=== PATIENT | male | born 1980 ===

== ENCOUNTER 2017-06-08 10:52 | Emergency (ER) | payer SELFPAY ==
[2017-06-08 10:55] VITALS: BP 139/94; PULSE 96; RESP 16; TEMP 97.8; O2SAT 98
[2017-06-08 11:05] VITALS: BMI 24.3
--- NOTE | 2017-06-08 11:08 | ED PDOC ---
HPI: Psych/Substance Abuse Time Seen by Provider: 06/08/17 10:57 Chief Complaint (Provider): ETOH History Per: Patient, EMS Additional Complaint(s): [place] presents with 36 yo male, asleep, seemingly in NAD, (+) AOB, for presumed ETOH intoxication. Pt found asleep on the floor with a bunch of other people who were drinking. Pt has no signs and symptoms of trauma. Pt arousable to tactile stimuli only. Past Medical History Reviewed: Unable To Obtain Vital Signs: Last Vital Signs Temp 97.8 F 06/08/17 10:54 Pulse 96 H 06/08/17 10:54 Resp 16 06/08/17 10:54 BP 139/94 H 06/08/17 10:54 Pulse Ox 98 06/08/17 10:54 - Family History Family History: States: Unknown Family Hx - Allergies Allergies/Adverse Reactions: Allergies Allergy/AdvReac Type Severity Reaction Status Date / Time No Known Allergies Allergy Verified 06/08/17 11:07 Review of Systems Review Of Systems: ROS cannot be obtained secondary to pt's inabilty to answer questions. Physical Exam - Reviewed Nursing Documentation Reviewed: Yes Vital Signs Reviewed: Yes - Physical Exam Appears: Positive for: Non-toxic, No Acute Distress Head Exam: Positive for: ATRAUMATIC, NORMAL INSPECTION, NORMOCEPHALIC Skin: Positive for: Normal Color, Warm, DRY Eye Exam: Positive for: EOMI, PERRL ENT: Positive for: Normal ENT Inspection Neck: Positive for: Normal, Painless ROM Cardiovascular/Chest: Positive for: Regular Rate, Rhythm Respiratory: Positive for: CNT, Normal Breath Sounds Gastrointestinal/Abdominal: Positive for: Bowel Sounds, Soft Back: Positive for: Normal Inspection - Laboratory Results Result Diagrams: 06/08/17 11:37 06/08/17 11:37 - ECG O2 Sat by Pulse Oximetry: 98 Medical Decision Making Medical Decision Making: Pt placed on cardiac cath technologist. IV access established and diagnostics ordered. Pt monitored in ED, doing well. Vitals remain stable on cardiac cath technologist. ETOH 640 Pt monitored in ED, asleep. responsive to tactile stimuli 1800- Pt awake and alert, asking for chicken and rice to eat. given food tray which he tolerated without difficulty. asleep on re-eval. Case endorsed to CELINA Miramontes at 1999 pending clinical sobriety Disposition - Clinical Impression Clinical Impression: Alcohol abuse - Patient ED Disposition Is Patient to be Admitted: Transfer of Care - Disposition Disposition: Transfer of Care Disposition Time: 19:20 Condition: STABLE
[2017-06-08 11:46] LABS: BASO # 0.1 K/uL (0.0-0.2); BASO % 1.4 % (0.0-2.0); HEMOGLOBIN 15.3 g/dL (12.0-18.0); LYMPH # 2.1 K/uL (1.0-4.3); MEAN CELL VOLUME 97.1 fl (80.0-94.0); MEAN CORPUSCULAR HEMOGLOBIN 32.6 pg (27.0-31.0); MEAN CORPUSCULAR HGB CONC 33.5 g/dL (33.0-37.0); MEAN PLATELET VOLUME 8.6 fl (7.2-11.7); MONO # 0.3 K/uL (0.0-0.8); MONO % 4.3 % (0.0-10.0); NEUT # 3.5 K/uL (1.8-7.0); NEUT % 59.3 % (50.0-75.0); NRBC % 0.1 % (0.0-0.0); RBC 4.7 Mil/uL (4.40-5.90); RED CELL DISTRIBUTION WIDTH 13.7 % (11.5-14.5); WHITE BLOOD COUNT 5.9 K/uL (4.8-10.8)
[2017-06-08 12:06] LABS: ACETAMINOPHEN < 10.0 ug/ml (10.0-30.0); SALICYLATE < 1.0 mg/dl
[2017-06-08 12:18] LABS: ALB/GLOB RATIO 1.4 (1.0-2.1); ALBUMIN 4.5 g/dL (3.5-5.0); ALT/SGPT 47 U/L (21-72); AST/SGOT 57 U/L (17-59); BLOOD UREA NITROGEN 7 mg/dl (9-20); CALCIUM 8.7 mg/dL (8.4-10.2); GFR AFRICAN-AMERICAN > 60; GFR NON-AFRICAN AMERICAN > 60
[2017-06-08] MEDS ORDERED: Sodium Chloride 0.9% 1,000 ML IV STA (16:59)
--- NOTE | 2017-06-08 20:19 | ED PDOC ---
- Laboratory Results Result Diagrams: 06/08/17 11:37 06/08/17 11:37 - ECG O2 Sat by Pulse Oximetry: 98 Pulse Ox Interpretation: Normal Medical Decision Making Medical Decision Making: Case was signed out to instructional writer from KATELYNN Cardona pending sobriety and final disposition. 9:00 pm: BAL is 640, patient is asleep, arousable, vital signs stable. 9:48 pm: patient is awake, alert, has steady gait. Patient would like to leave. He is stable for discharge. Disposition - Clinical Impression Clinical Impression: Alcohol abuse, Alcohol abuse with intoxication - POA Present On Arrival: None - Disposition Referrals: [facility] [Outside] Disposition: Routine/Home Disposition Time: 21:48 Condition: STABLE Instructions: Alcohol Intoxication (ED), Abuse of Alcohol (ED) Forms: [facility] (Bulgarian)
[2017-06-08 22:13] LABS: URINE BILIRUBIN NEGATIVE (NEGATIVE); URINE BLOOD SMALL (NEGATIVE); URINE CLARITY CLEAR (Clear); URINE COLOR STRAW (YELLOW); URINE GLUCOSE (UA) NEG (Normal); URINE LEUKOCYTE ESTERASE NEG Leu/uL (Negative); URINE NITRATE NEGATIVE (NEGATIVE); URINE PROTEIN NEGATIVE (NEGATIVE); URINE UROBILINOGEN 0.2-1.0 mg/dL (0.2-1.0)
== END 2017-06-08 22:30 | disposition home or self-care (01) ==
LOC: MERGE 10:52 → EDBD 10:52 → H.ER 10:52
DX: F10.129 Alcohol abuse with intoxication, unspecified (principal)
CPT/HCPCS: 80053; 81003; 82948; 85025; 96360; 99283; G0480; J7040